=== PATIENT | male | born 1975 | race African-American/Black ===

== ENCOUNTER 2022-01-06 20:51 | Emergency (ER) | payer OTHER ==
[~2022-01-06] VITALS: Ht 180.3 cm; Wt 89.8 kg
[2022-01-06 20:51] VITALS: BP 136/84
[2022-01-06 22:34] LABS: Basophils # (auto) 0.2 10 ^3/uL (0-0.2); Eosinophils # (auto) 0.1 10 ^3/uL (0-0.8); Eosinophils % (auto) 1.7 % (0.0-7.0); Hematocrit 41.6 % (41.0-53.0); Hemoglobin 13.7 g/dL (13.5-17.5); Lymphocytes # (auto) 2.4 10 ^3/uL (0.4-5.4); Lymphocytes % (auto) 30.2 % (10.0-50.0); Mean Corpuscular Hemoglobin 27.8 pg (28.0-32.0); Mean Corpuscular Hgb Conc. 32.8 g/dL (32.0-36.0); Mean Corpuscular Volume 84.7 fL (80.0-100.0); Monocytes # (auto) 0.5 10 ^3/uL (0-1.3); Monocytes % (auto) 5.9 % (0.0-12.0); Neutrophils # (auto) 4.8 10 ^3/uL (1.6-8.6); Neutrophils % (auto) 60.2 % (37.0-80.0); Red Blood Cells 4.91 10^6/uL (4.5-5.90); Red Cell Distribution Width 14.6 % (11.8-14.3)
[2022-01-06 22:45] LABS: Albumin 3.9 g/dL (3.4-5.0); BUN/Creatinine Ratio 15.5; Calcium 8.5 mg/dL (8.5-10.1); Potassium 3.8 mmol/L (3.5-5.1)
[2022-01-06 22:51] LABS: Bilirubin, Total 0.3 mg/dL (0.2-1.0)
== END 2022-01-07 02:06 | disposition left against medical advice (07) ==
LOC: ER 20:51
DX: R55 Syncope and collapse (principal); R51.9 Headache, unspecified; Z53.21 Procedure and treatment not carried out due to patient leaving prior to being seen by health care provider
CPT/HCPCS: 36415; 80053; 85025; 93005

== ENCOUNTER 2022-07-14 21:45 | Emergency (ER) | payer OTHER ==
[~2022-07-14] VITALS: Ht 180.3 cm; Wt 79.4 kg
[2022-07-14] MEDS ORDERED: cloNIDine HCL 0.1 MG TAB PO ONE (22:45)
[2022-07-14 23:16] LABS: Calcium 8.8 mg/dL (8.5-10.1); Potassium 4.2 mmol/L (3.5-5.1)
[2022-07-14 23:19] LABS: BUN/Creatinine Ratio 21.1; Bilirubin, Total 0.4 mg/dL (0.2-1.0); Total Protein 6.7 g/dL (6.4-8.2)
[2022-07-14 23:40] VITALS: BP 179/123
[2022-07-15 00:04] LABS: Basophils # (auto) 0.1 10 ^3/uL (0-0.2); Basophils % (auto) 1.3 % (0.0-2.0); Eosinophils # (auto) 0.2 10 ^3/uL (0-0.8); Eosinophils % (auto) 2.1 % (0.0-7.0); Hematocrit 42.2 % (41.0-53.0); Hemoglobin 13.6 g/dL (13.5-17.5); Lymphocytes # (auto) 3.5 10 ^3/uL (0.4-5.4); Lymphocytes % (auto) 34.9 % (10.0-50.0); Mean Corpuscular Hemoglobin 27.2 pg (28.0-32.0); Mean Corpuscular Hgb Conc. 32.3 g/dL (32.0-36.0); Mean Corpuscular Volume 84.3 fL (80.0-100.0); Monocytes # (auto) 0.6 10 ^3/uL (0-1.3); Neutrophils # (auto) 5.6 10 ^3/uL (1.6-8.6); Neutrophils % (auto) 55.7 % (37.0-80.0); Nucleated Red Blood Cells % 0.1 %; Red Cell Distribution Width 14.6 % (11.8-14.3); White Blood Cell 10.1 10^3/uL (4.4-10.8)
[2022-07-15] MEDS ORDERED: hydrALAZINE HCL 20 MG/ML VL IV ONE (00:15)
[2022-07-15] MEDS ORDERED: AML5T PO (01:51)
== END 2022-07-15 04:43 | disposition home or self-care (01) ==
LOC: ER 21:45
DX: R07.89 Other chest pain (principal); I10 Essential (primary) hypertension
CPT/HCPCS: 36415; 71046; 80053; 84484; 85025; 93005

== ENCOUNTER 2024-02-04 19:40 | Emergency (ER) | payer OTHER ==
[~2024-02-04] VITALS: Ht 180.3 cm; Wt 84.1 kg
[~2024-02-04 19:40] MED LIST: AML5T PO
[2024-02-04 20:05] LABS: Basophils # (auto) 0.1 10 ^3/uL (0-0.2); Eosinophils # (auto) 0.2 10 ^3/uL (0-0.8); Eosinophils % (auto) 1.7 % (0.0-7.0); Hematocrit 41.4 % (41.0-53.0); Hemoglobin 13.7 g/dL (13.5-17.5); Lymphocytes # (auto) 3.1 10 ^3/uL (0.4-5.4); Lymphocytes % (auto) 31.8 % (10.0-50.0); Mean Corpuscular Hemoglobin 28.2 pg (28.0-32.0); Mean Corpuscular Hgb Conc. 33.2 g/dL (32.0-36.0); Mean Corpuscular Volume 84.8 fL (80.0-100.0); Monocytes # (auto) 0.6 10 ^3/uL (0-1.3); Monocytes % (auto) 6.1 % (0.0-12.0); Neutrophils # (auto) 5.8 10 ^3/uL (1.6-8.6); Neutrophils % (auto) 59.4 % (37.0-80.0); Nucleated Red Blood Cells % 0.1 %; Red Blood Cells 4.88 10^6/uL (4.5-5.90); Red Cell Distribution Width 14.3 % (11.8-14.3); White Blood Cell 9.8 10^3/uL (4.4-10.8)
[2024-02-04 20:22] LABS: Albumin 4.2 g/dL (3.2-4.8); Alkaline Phosphatase 61 U/L (46-116); Anion Gap 6 (5-15); Aspartate Aminotransferase 15 U/L (13-40); BUN/Creatinine Ratio 12.8 (10.0-20.0); Bilirubin, Total 0.4 mg/dL (0.2-1.0); Blood Urea Nitrogen 18 mg/dL (9-23); Calcium 9.5 mg/dL (8.7-10.4); Carbon Dioxide 24 mmol/L (20-30); Chloride 110 mmol/L (98-107); Glucose 101 mg/dL (74-106); Magnesium 1.9 mg/dL (1.6-2.6); Potassium 4.2 mmol/L (3.5-5.1); Sodium 140 mmol/L (136-145); Total Protein 6.5 g/dL (5.7-8.2)
[2024-02-04 20:29] LABS: INR 0.97 (0.9-1.15); Partial Thromboplastin Time 27.5 SEC (24.5-34.5); Prothrombin Time 10.3 sec (9.3-11.8)
[2024-02-04 20:48] LABS: Alanine Aminotransferase 21 U/L (7-40)
[2024-02-05 02:16] VITALS: BP 134/89; PULSE 62; RESP 16; O2SAT 99
== END 2024-02-05 02:17 | disposition home or self-care (01) ==
LOC: ER 19:40
DX: I24.9 Acute ischemic heart disease, unspecified (principal); R07.89 Other chest pain; I10 Essential (primary) hypertension; I25.10 Atherosclerotic heart disease of native coronary artery without angina pectoris; F15.90 Other stimulant use, unspecified, uncomplicated; Z79.899 Other long term (current) drug therapy
CPT/HCPCS: 36415; 71045; 80053; 83735; 83880; 84484; 85025; 85610; 85730; 93005

== ENCOUNTER 2025-04-12 14:06 | Emergency (ER) | payer OTHER ==
[~2025-04-12] VITALS: Ht 180.3 cm; Wt 80.0 kg
[2025-04-12 14:07] VITALS: TEMP 97.5
--- NOTE | 2025-04-12 15:13 | ED.PDOC ---
History of Present Illness HPI Comments 50M presents to the ER in a wheelchair being pushed by his family and having a prior MHx of HTN, High Lipids, ND, CAD:SHx of Appendectomy, Left Femur Sx and the c/c of N/V. Pt reports on having TAN behind bilateral eyes for 1 week and worsening during the last 24hrs w/ N/V. Denies chills, fever, /D, SOB, CP. Denies any other associated symptom's, modifiers, or recent injuries or sick contact at this time. Chief Complaint: High Blood Pressure Time Seen by MD: 15:00 Reviewed Notes: Nurses Notes, Medications, Allergies Allergies: Coded Allergies: NO KNOWN ALLERGIES (Unverified , 07/14/22) Home Meds Active Scripts Amlodipine Besylate (NORVASC TABLET) 5 Mg Tb, 1 TAB PO DAILY for 30 Days, #30 TAB 5 Refills Prov:MIGUEL CARMICHAEL MD 07/15/22 Information Source: Patient, Relative Mode of Arrival: Ambulatory Severity: Moderate Timing: Weeks Duration: Since onset Prehospital treatment: None Past Medical History PAST MEDICAL HISTORY: CAD, High Lipids, HTN, ND Surgical History: Appendectomy Surgical History (Other): left femur Sx Family History Family History: Reviewed,noncontributory to illness, Family hx of DM, Family hx of heart lobo Social History Smoker: Cigarettes Alcohol: Occasionally Drugs: Marijuana Lives In: Home Constitutional: denies: chills, diaphoresis, fatigue, fever, malaise, sweats, weakness, others EENTM: denies: blurred vision, double vision, ear bleeding, ear discharge, ear drainage, ear pain, ear ringing, eye pain, eye redness, hearing loss, mouth pain, mouth swelling, nasal discharge, nose bleeding, nose congestion, nose pain, photophobia, tearing, throat pain, throat swelling, voice changes, others Respiratory: denies: cough, hemoptysis, orthopnea, SOB at rest, shortness of breath, SOB with excertion, stridor, wheezing, others Cardiovascular: denies: chest pain, dizzy spells, diaphoresis, Dyspnea on exertion, edema, irregular heart beat, left arm pain, lightheadedness, palpitations, PND, syncope, others Gastrointestinal: reports: nausea, vomiting; denies: abdomen distended, abdominal pain, blood streaked bowels, constipated, diarrhea, dysphagia, difficulty swallowing, hematemesis, melena, poor appetite, poor fluid intake, rectal bleeding, rectal pain, others Genitourinary: denies: burning, dysuria, flank pain, frequency, hematuria, incontinence, penile discharge, penile sore, pain, testicle pain, testicle swelling, urgency, others Neurological: reports: headache; denies: dizziness, fainting, left sided numbness, left sided weakness, numbness, paresthesia, pre-existing deficit, right sided numbness, right sided weakness, seizure, speech problems, tingling, tremors, weakness, others Musculoskeletal: denies: back pain, gout, joint pain, joint swelling, muscle pain, muscle stiffness, neck pain, others Integumetry: denies: bruises, change in color, change in hair/nails, dryness, laceration, lesions, lumps, rash, wounds, others Allergic/Immunocompromised: denies: Difficulty Healing, Frequent Infections, Hives, Itching, others Hematologic/Lymphatic: denies: anemia, blood clots, easy bleeding, easy bruising, swollen glands, others Endocrine: denies: excessive hunger, excessive sweating, excessive thirst, excessive urination, flushing, intolerance to cold, intolerance to heat, unexplained weight gain, unexplained weight loss, others Psychiatric: denies: anxiety, bipolar disorder, depression, hopeless, panic disorder, schizophrenia, sleepless, suicidal, others All Other Systems: Reviewed and Negative Physical Exam General Appearance: Moderate Distress HEENT: Normal ENT Inspection, Pharynx Normal, TMs Normal Neck: Full Range of Motion, Non-Tender, Normal, Normal Inspection Respiratory: Chest Non-Tender, Lungs Clear, No Accessory Muscle Use, No Respiratory Distress, Normal Breath Sounds Cardiovascular: No Edema, No JVD, No Murmur, No Gallop, Normal Peripheral Pulses, Regular Rate/Rhythm Breast Exam: Deferred Gastrointestinal: No Organomegaly, Non Tender, No Pulsatile Mass, Normal Bowel Sounds, Soft Genitalia: Deferred Pelvic: Deferred Rectal: Deferred Extremities: No calf tenderness, Normal capillary refill, Normal inspection, Normal range of motion, Non-tender, No pedal edema Musculoskeletal : Apperance: Normal Neurologic: Alert, tire manager II-XII nml as Tested, Motor Weakness, Normal Affect, Normal Mood, No Sensory Deficits Cerebellar Function: Normal Reflexes: Normal Skin: Dry, Normal Color, Warm Lymphatic: No Adenopathy Was a procedure done? Was a procedure done?: No Differential Dx Considerations may include: Generalized weakness, electrolyte imbalance, hypertensive urgency X-Ray, Labs, Meds, VS Vital Signs Date Time Temp Pulse Resp B/P (MAP) Pulse Ox O2 Delivery O2 Flow Rate FiO2 04/12/25 17:11 156/96 (116) 04/12/25 16:01 176/99 04/12/25 14:07 97.5 67 15 155/110 95 97.5 Lab Test 04/12/25 15:30 Range/Units White Blood Count 9.9 4.4-10.8 10^3/uL Red Blood Count 5.90 4.5-5.90 10^6/uL Hemoglobin 16.9 13.5-17.5 g/dL Hematocrit 50.7 41.0-53.0 % Mean Corpuscular Volume 85.8 80.0-100.0 fL Mean Corpuscular Hemoglobin 28.6 28.0-32.0 pg Mean Corpuscular Hemoglobin Concent 33.3 32.0-36.0 g/dL Red Cell Distribution Width 14.4 H 11.8-14.3 % Platelet Count 189 140-450 10^3/uL Mean Platelet Volume 7.7 6.9-10.8 fL Neutrophils (%) (Auto) 76.4 37.0-80.0 % Lymphocytes (%) (Auto) 20.2 10.0-50.0 % Monocytes (%) (Auto) 2.4 0.0-12.0 % Eosinophils (%) (Auto) 0.4 0.0-7.0 % Basophils (%) (Auto) 0.6 0.0-2.0 % Neutrophils # (Auto) 7.6 1.6-8.6 10 ^3/uL Lymphocytes # (Auto) 2.0 0.4-5.4 10 ^3/uL Monocytes # (Auto) 0.2 0-1.3 10 ^3/uL Eosinophils # (Auto) 0 0-0.8 10 ^3/uL Basophils # (Auto) 0.1 0-0.2 10 ^3/uL Nucleated Red Blood Cells 0.0 % Sodium Level 141 136-145 mmol/L Potassium Level 3.9 3.5-5.1 mmol/L Chloride Level 110 H 98-107 mmol/L Carbon Dioxide Level 23 20-31 mmol/L Anion Gap 8 5-15 Blood Urea Nitrogen 12 9-23 mg/dL Creatinine 0.93 0.700-1.30 mg/dL Glomerular Filtration Rate Calc 100 >90 mL/min BUN/Creatinine Ratio 12.9 10.0-20.0 Serum Glucose 98 74-106 mg/dL Calcium Level 9.3 8.7-10.4 mg/dL Current Medications Medications (Trade) Dose Ordered Sig/Robb Route Start Time Stop Time Status Last Admin Hydralazine HCl (Apresoline Injection) 20 mg ONCE ONCE IV 04/12/25 15:30 04/12/25 15:31 DC 04/12/25 16:01 Acetaminophen/ Hydrocodone Bitart ([place] 10/325MG Tab) 1 tab ONCE ONCE PO 04/12/25 15:30 04/12/25 15:31 DC 04/12/25 16:03 The patient was given hydralazine 20 mg IV push for the elevated blood pressure The patient was also given [place] for the headache. The patient's CBC and chemistry panel are within normal limits. The CAT scan of the head shows: No sign of any abnormalities. At this time the patient is now having some nausea and vomiting. The patient is being given Zofran 4 mg IV push The patient will be admitted at this time. The patient's diagnosis is accelerated hypertension Images Reviewed?: Images reviewed and evaluated by me Time of 1ST Reevaluation: 15:30 Reevaluation 1ST: Unchanged Time of 2ND Reevaluation: 17:42 Reevaluation 2ND: Improved Patient Education/Counseling: Diagnosis, Treatment, Prognosis Family Education/Counseling: Diagnosis, Treatment, Prognosis SEPSIS Sepsis Screen Date sepsis recognized/suspect: Apr 12, 2025 Time Sepsis recognized/suspect: 1409 Recent Procedure: No On Antibiotic Therapy: No Respiratory Rate >20: No Heart Rate >90: No Temp<36 C (96.8 F) or >38.3 C: No SBP <90 or MAP <65 mmHG: No New Acute Mental Status Change: No Is the patient on CPAP, BIPAP,: No Physician Orders Heplock Iv (04/12/25 15:17) Head Without Contrast (04/12/25 15:17) Vital Signs Date Time Temp Pulse Resp B/P (MAP) Pulse Ox O2 Delivery O2 Flow Rate FiO2 04/12/25 17:11 156/96 (116) 04/12/25 16:01 176/99 04/12/25 14:07 97.5 67 15 155/110 95 97.5 Laboratory Tests Test 04/12/25 15:30 White Blood Count 9.9 10^3/uL (4.4-10.8) Medications Medications Dose Ordered Sig/Robb Route Start Time Stop Time Status Last Admin Dose Admin Acetaminophen/ Hydrocodone Bitart 1 tab ONCE ONCE PO 04/12/25 15:30 04/12/25 15:31 DC 04/12/25 16:03 Hydralazine HCl 20 mg ONCE ONCE IV 04/12/25 15:30 04/12/25 15:31 DC 04/12/25 16:01 Departure 1 Departure Time of Disposition: 17:43 Impression: Primary Impression: Accelerated hypertension Additional Impression: Intractable vomiting Disposition: ADMITTED INPATIENT Admit to: Tele Condition: Fair Critical Care Note Critical Care Time?: Yes (45 min-critical care time only) Stability Stability form required: Yes Unstable for transfer: Telemetry monitoring (Telemetry monitoring required), ED Physician Assesment (Clinical assesment) Heart Score Heart Score: Heart Score Response (Comments) Value History N/A 0 EKG N/A 0 Age N/A 0 Risk Factors N/A 0 Troponin N/A 0 Total 0 I personally scribed for BRAVO TRAN MD ([email or web address]) on 04/12/25 at 15:13. Electronically submitted by Bernardino Gutierrez ([email or web address]). BRAVO TRAN MD Apr 12, 2025 15:13
[2025-04-12 15:42] LABS: Hematocrit 50.7 % (41.0-53.0); Hemoglobin 16.9 g/dL (13.5-17.5); Mean Corpuscular Hemoglobin 28.6 pg (28.0-32.0); Mean Corpuscular Volume 85.8 fL (80.0-100.0); Nucleated Red Blood Cells % 0.0 %
[2025-04-12 15:47] LABS: Potassium 3.9 mmol/L (3.5-5.1); Sodium 141 mmol/L (136-145)
[2025-04-12 15:49] LABS: Anion Gap 8 (5-15); Calcium 9.3 mg/dL (8.7-10.4); Carbon Dioxide 23 mmol/L (20-31)
[2025-04-12 15:54] LABS: BUN/Creatinine Ratio 12.9 (10.0-20.0); Blood Urea Nitrogen 12 mg/dL (9-23); Glucose 98 mg/dL (74-106)
[2025-04-12 16:01] LABS: Chloride 110 mmol/L (98-107)
[2025-04-12] MEDS: hydrALAZINE HCL 20 MG/ML VL IV ONE (16:01)
[2025-04-12] MEDS: HYDROcodone-ACET 10/325MG TAB PO ONE (16:03)
--- NOTE | 2025-04-12 16:22 | DVH ---
EXAM: CT HEAD WITHOUT CONTRAST INDICATION: TAN TECHNIQUE: CT images of the head were obtained without administration of IV contrast. CT scans at [facility] facility use dose modulation, iterative reconstruction, and/or weight based dosing when appropriate to reduce radiation dose to as low as reasonably achievable. COMPARISON: None FINDINGS: PARENCHYMA: No acute hemorrhage. There is no mass effect, midline shift, or herniation. There is pres ervation of the park white differentiation. VENTRICLES: No hydrocephalus. EXTRA-AXIAL SPACES: No extra-axial fluid collections. OTHER: The bony structures are intact. Visualized portions of the paranasal sinuses and mastoid air cells are clear. IMPRESSION: 1. No CT evidence of an acute intracranial abnormality.
[2025-04-12] MEDS: ONDANSETRON HCL 4 MG/2 ML VIAL IV ONE (18:09)
[2025-04-12] MEDS: SODIUM CHLORIDE 0.9% 1,000 ML IV ONE (23:07)
[2025-04-12] MEDS: PROCHLORPERAZINE EDISYLATE 5 MG/ML 2ML VIAL IV PRN (23:07)
[2025-04-12] MEDS: KETOROLAC TROMETH 30 MG/ML 1ML VIAL IV ONE (23:07)
--- NOTE | 2025-04-12 23:27 | DVH ---
CHEST RADIOGRAPH Indication: Chest pain Technique: Single frontal view of the chest was obtained COMPARISON: XY CHEST PORTABLE on DOS: 02/04/24 FINDINGS: Lines and Tubes: None Lungs: Clear Pleura: No pleural effusion. No pneumothorax. Cardiomediastinal contours: Unremarkable Shrapnel again noted in left axilla. IMPRESSION: No cardiopulmonary abnormality noted. No appreciable change compared to the prior chest x-ray from January 2024.
[2025-04-12] MEDS ORDERED: ZOFR4T PO (23:53)
[2025-04-12] MEDS ORDERED: AML5T PO (23:53)
[2025-04-13] MEDS ORDERED: AML5T PO (01:25)
[2025-04-13 01:50] VITALS: BP 140/89; PULSE 80
[2025-04-13 02:00] VITALS: RESP 20; O2SAT 98
--- NOTE | 2025-04-13 04:14 | ECG ---
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
--- NOTE | 2025-04-13 11:13 | DVHINCON2 ---
Date of service: Apr 12, 2025 Referring Physician Delio Reason for Consultation elevated BP History of Present Illness This is a 50 year old male with a PMH of CAD, High Lipids, HTN, ID who was brought in by family due to complaints of elevated BP. The patient reports a headache behind bilateral eyes x 1 week and worsening during the last 24hrs with N/V. The patients BP upon arrival was 155/110 and 176/99. The patient was given hydralazine 20 mg IV, Zofran and Calvin. CBC and chemistry panel are within normal limits. CT scan of the head shows no sign of any abnormalities. Chest x- ray is WNL. EKG shows NSR at 88. Patient was admitted to the hospital. I am asked to consult on this patient. Allergies: Coded Allergies: NO KNOWN ALLERGIES (Unverified , 07/14/22) Home Meds Active Scripts Amlodipine Besylate (NORVASC TABLET) 5 Mg Tb, 5 MG PO ONCE for 90 Days, #90 TAB 0 Refills Prov:FIORDALIZA RILEY MD 04/13/25 Ondansetron Odt 4MG Tab (ZOFRAN PO) 4 Mg Tb, 4 MG PO Q8HP PRN, #15 TAB ODT TAB-DISSOLVE IN MOUTH, THEN SWALLOW Prov:FIORDALIZA RILEY MD 04/12/25 Discontinued Scripts Amlodipine Besylate (NORVASC TABLET) 5 Mg Tb, 1 TAB PO DAILY for 30 Days, #30 TAB 5 Refills Prov:MIGUEL CARMICHAEL MD 07/15/22 Current Medications Current Medications Medications (Trade) Dose Ordered Sig/Robb Route PRN Reason Start Time Stop Time Status Last Admin Prochlorperazine Edisylate (Compazine Inj) 10 mg Q4HPRN PRN IV NAUSEA OR VOMITING 04/12/25 22:00 04/13/25 02:11 DC 04/12/25 23:07 Review of Systems Constitutional: denies: chills, diaphoresis, fatigue, fever, malaise, sweats, weakness, others EENTM: denies: blurred vision, double vision, ear bleeding, ear discharge, ear drainage, ear pain, ear ringing, eye pain, eye redness, hearing loss, mouth pain, mouth swelling, nasal discharge, nose bleeding, nose congestion, nose pain, photophobia, tearing, throat pain, throat swelling, voice changes, others Respiratory: denies: cough, hemoptysis, orthopnea, SOB at rest, shortness of breath, SOB with excertion, stridor, wheezing, others Cardiovascular: denies: chest pain, dizzy spells, diaphoresis, Dyspnea on exertion, edema, irregular heart beat, left arm pain, lightheadedness, palpitations, PND, syncope, others Gastrointestinal: reports: nausea, vomiting; denies: abdomen distended, abdominal pain, blood streaked bowels, constipated, diarrhea, dysphagia, difficulty swallowing, hematemesis, melena, poor appetite, poor fluid intake, rectal bleeding, rectal pain, others Genitourinary: denies: burning, dysuria, flank pain, frequency, hematuria, incontinence, penile discharge, penile sore, pain, testicle pain, testicle swelling, urgency, others Neurological: reports: headache; denies: dizziness, fainting, left sided numbness, left sided weakness, numbness, paresthesia, pre-existing deficit, right sided numbness, right sided weakness, seizure, speech problems, tingling, tremors, weakness, others Musculoskeletal: denies: back pain, gout, joint pain, joint swelling, muscle pain, muscle stiffness, neck pain, others Integumetry: denies: bruises, change in color, change in hair/nails, dryness, laceration, lesions, lumps, rash, wounds, others Allergic/Immunocompromised: denies: Difficulty Healing, Frequent Infections, Hives, Itching, others Hematologic/Lymphatic: denies: anemia, blood clots, easy bleeding, easy bruising, swollen glands, others Endocrine: denies: excessive hunger, excessive sweating, excessive thirst, excessive urination, flushing, intolerance to cold, intolerance to heat, unexplained weight gain, unexplained weight loss, others Psychiatric: denies: anxiety, bipolar disorder, depression, hopeless, panic disorder, schizophrenia, sleepless, suicidal, others All Other Systems: Reviewed and Negative Vital Signs Vital Signs Date Time Temp Pulse Resp B/P (MAP) Pulse Ox O2 Delivery O2 Flow Rate FiO2 04/13/25 02:00 20 98 Room Air* 0 21 04/13/25 01:50 80 140/89 (106) 04/12/25 14:07 97.5 97.5 Physical Exam GENERAL: Alert and oriented x 3. No acute distress. EYES: PERRL, EOMI. Anicteric. HENT: Moist mucous membranes. LUNGS: Clear to auscultation bilaterally. CARDIOVASCULAR: Regular rate and rhythm. ABDOMEN: Soft, non-tender and non-distended. EXTREMITIES: No edema. NEUROLOGIC: No focal neurological deficits. SKIN: Warm, dry. Labs/Diagnostic Data Labs Test 04/13/25 01:00 04/12/25 15:30 Range/Units Troponin I High Sensitivity 37 </=54 ng/L White Blood Count 9.9 4.4-10.8 10^3/uL Red Blood Count 5.90 4.5-5.90 10^6/uL Hemoglobin 16.9 13.5-17.5 g/dL Hematocrit 50.7 41.0-53.0 % Mean Corpuscular Volume 85.8 80.0-100.0 fL Mean Corpuscular Hemoglobin 28.6 28.0-32.0 pg Mean Corpuscular Hemoglobin Concent 33.3 32.0-36.0 g/dL Red Cell Distribution Width 14.4 H 11.8-14.3 % Platelet Count 189 140-450 10^3/uL Mean Platelet Volume 7.7 6.9-10.8 fL Neutrophils (%) (Auto) 76.4 37.0-80.0 % Lymphocytes (%) (Auto) 20.2 10.0-50.0 % Monocytes (%) (Auto) 2.4 0.0-12.0 % Eosinophils (%) (Auto) 0.4 0.0-7.0 % Basophils (%) (Auto) 0.6 0.0-2.0 % Neutrophils # (Auto) 7.6 1.6-8.6 10 ^3/uL Lymphocytes # (Auto) 2.0 0.4-5.4 10 ^3/uL Monocytes # (Auto) 0.2 0-1.3 10 ^3/uL Eosinophils # (Auto) 0 0-0.8 10 ^3/uL Basophils # (Auto) 0.1 0-0.2 10 ^3/uL Nucleated Red Blood Cells 0.0 % Sodium Level 141 136-145 mmol/L Potassium Level 3.9 3.5-5.1 mmol/L Chloride Level 110 H 98-107 mmol/L Carbon Dioxide Level 23 20-31 mmol/L Anion Gap 8 5-15 Blood Urea Nitrogen 12 9-23 mg/dL Creatinine 0.93 0.700-1.30 mg/dL Glomerular Filtration Rate Calc 100 >90 mL/min BUN/Creatinine Ratio 12.9 10.0-20.0 Serum Glucose 98 74-106 mg/dL Calcium Level 9.3 8.7-10.4 mg/dL Assessment Accelerated hypertension. Intractable vomiting. Plan/Recommendation I agree with your ongoing assessment and care of plan. Trend troponin. Amlodipine. Clonidine. Additional plan as per the hospital course. A total of 45 minutes was spent reviewing the patient record, examining the patient, making a diagnostic and therapeutic plan, discussing this plan with medical personnel, following up on diagnostic studies and following the patient for clinical stability excluding any and all procedures. At least 50% of this time was spent in direct, iide-sd-dlym contact. Plan discussed with: Patient JULIANA GONZALEZ MD Apr 13, 2025 11:13
--- NOTE | 2025-04-13 16:20 | DVHINCON2 ---
DATE OF CONSULTATION: 04/13/2025 CHIEF COMPLAINT: Coming in with headaches, nausea and vomiting, high blood pressure. HISTORY OF PRESENT ILLNESS: This is a 50-year-old male with significant past medical history for essential hypertension, coronary artery disease, hyperlipidemia, who is medication noncompliant, who has a stressful life with two active jobs, who presents to the emergency room with a chief complaint of headache, nausea, vomiting, and high blood pressure. The patient apparently stopped taking his medications back in December to include his amlodipine, statins, and aspirin. The patient does have a veterinary pathologist, Dr. Cruz, which he routinely follows up with. The patient says he has been having symptoms of headache for about a week now and in the last 24 hours, has been having nausea and vomiting and difficulty consuming food and hydrating. The patient says, however, in the last 12 hours, this has been improved with consuming liquids. He has noticed some palpitations in his chest. He has not had any dizziness or weakness. He felt like maybe there was some chest discomfort, but he denies any exertional chest pain or shortness of breath symptoms. The patient says that his headaches are kind of retroorbital, again having nausea and vomiting associated with it as well as light sensitivity but not noise sensitivity. The patient has never had migraines in the past. The patient otherwise denies any cough, any phlegm, any diarrhea or constipation, any bloody or tarry stools, any urinary frequency, urgency, or burning sensation. PAST MEDICAL HISTORY: Essential hypertension, coronary artery disease, and hyperlipidemia. PAST SURGICAL HISTORY: Had a coronary angiogram in 2022. No history of any stents. He had a left humeral fracture surgery. SOCIAL HISTORY: He is a marijuana user daily. He denies any alcohol or any other illicit drugs. MEDICATIONS AT HOME: The patient currently does not take any of his medications. MEDICATION ALLERGIES: No known drug allergies. REVIEW OF SYSTEMS: A 10-point review of systems was covered with the patient and was negative with exception to what was present in history of present illness. PHYSICAL EXAMINATION: VITAL SIGNS: Temp 97.5, pulse of 67, respiratory rate of 15, blood pressure of 155/110, pulse ox about 95% on room air. GENERAL: Seems to be alert and oriented x 4, not in acute distress male, sitting up in a wheelchair. HEENT: Normocephalic, atraumatic. Extraocular muscles are intact. Pupils are equally round and reactive to light and accommodations. Mucous membranes Are dry. CARDIOVASCULAR: S1, S2 positive. Regular rate and rhythm without gallops or murmurs. LUNGS: Clear to auscultation bilaterally. No wheezing, rhonchi, or rales. ABDOMEN: Seems to be soft, nontender, and nondistended. Positive bowel sounds. No guarding or rebound. EXTREMITIES: No lower extremity edema, clubbing, or cyanosis. SKIN: Increased skin turgor pressure. NEUROLOGIC: Cranial nerve testing 2 to 12 overall seems to be intact. No focal deficits. LABORATORY WORKUP: Showed a white count of 9.9, H and H of 16.9/50.7, platelet count of 189,000. No neutrophil shift. Sodium 141, potassium 3.9, chloride 110, carbon dioxide 23, anion gap of 8, BUN of 12, creatinine 0.93, serum glucose of 98. Troponins of 33 and repeat of 37. IMAGING: Chest imaging shows no acute cardiopulmonary disease process. CT head showed no CT evidence for acute intracranial abnormality. EKG showed normal sinus rhythm, ventricular rate of 88 with nonspecific T-wave changes in V2, III, and AVF. DIAGNOSES: * Uncontrolled hypertension. * Migraines. * Medication noncompliance. PLAN: The patient was kept in the emergency room. Full assessment and evaluation was completed. The patient did have a chest x-ray, which showed no acute cardiopulmonary disease process. The patient had 2 troponins which were negative. The patient is not having any exertional symptoms and was excluded from underlying acute coronary syndrome. The patient does have a history of known coronary artery disease without any prior stents with cardiac angiogram done in 09/2022. The patient has been noncompliant with his home aspirin or statin medication or blood pressure medication. Cardiology consultation was completed by Dr. Nataly Multani, who cleared the patient from his cardiac perspective. The patient received multiple doses of blood pressure medications to include clonidine 0.1 mg as well as hydralazine 20 mg IV with improved blood pressure as the patient prior to his discharge did receive his home amlodipine 5 mg p.o. with blood pressure returning back to 140/89. The patient also describing symptoms of nausea, vomiting, retroorbital pressure with light sensitivity, which is consistent with migraines. The patient was also dehydrated at the time of my assessment. The patient did receive 1 liter of IV fluids in combination with Compazine 10 mg IV and ketorolac 30 mg IV x 1. The patient's headaches have improved. The patient is overall feeling much improved. The patient will be discharged home with renewal of his amlodipine that he ran out back in December 5 mg one tablet p.o. daily. The patient is to resume his home aspirin and statin medication. The patient will be arranged for a primary care provider to follow up within the next 5-7 days. The patient has been educated to monitor his blood pressures at home and to keep a log to present to his primary care provider. The patient was also given a temporary Zofran 4 mg p.r.n. 3 times daily as needed, 15 pills total. The patient is to return to the emergency room in case of any chest pain, shortness of breath, intractable nausea, vomiting, fevers, chills, or any other concerning signs and/or symptoms. [facility] will arrange the patient's followup and will be called with his appointment date and time. Cesar Murphy MD LM/ELI TID: [id number] RECEIPT: [id number]
== END 2025-04-13 02:00 | disposition home or self-care (01) ==
LOC: ER 14:06
DX: R11.2 Nausea with vomiting, unspecified (principal); I10 Essential (primary) hypertension; E78.5 Hyperlipidemia, unspecified; E86.0 Dehydration; F17.210 Nicotine dependence, cigarettes, uncomplicated; I25.2 Old myocardial infarction; Z79.899 Other long term (current) drug therapy; Z90.49 Acquired absence of other specified parts of digestive tract; Z91.128 Patient's intentional underdosing of medication regimen for other reason; Z91.148 Patient's other noncompliance with medication regimen for other reason
CPT/HCPCS: 36415; 70450; 71045; 80048; 84484; 85025; 93005; 96361; 96374; 96375; 99285; J0360; J0780; J1885; J2405; J7030